=== PATIENT | male | born 1995 | race African-American/Black ===

== ENCOUNTER 2022-10-01 20:17 | Emergency (ER) | payer OTHER ==
[2022-10-01 20:29] VITALS: BP 119/66; PULSE 88; RESP 20; TEMP 98.1; BMI 21.4
[2022-10-01] MEDS ORDERED: LIDOCAINE HCL 2% (50ML VIAL) SQ ONE (21:32)
[2022-10-01] MEDS ORDERED: DIPHTH,PERTUSS(ACELL),TET 0.5 ML DISP.SYRIN IM ONE ×2 (21:33→21:53)
== END 2022-10-01 23:00 | disposition home or self-care (01) ==
LOC: JERFT 20:17
PROC: 0HQ1XZZ Repair Face Skin, External Approach (ICD-10-PCS; principal; 2022-10-01)
PROC: 3E0234Z Introduction of Serum, Toxoid and Vaccine into Muscle, Percutaneous Approach (ICD-10-PCS; 2022-10-01)
DX: S01.81XA Laceration without foreign body of other part of head, initial encounter (principal); W50.0XXA Accidental hit or strike by another person, initial encounter; Y93.67 Activity, basketball
CPT/HCPCS: 12011-25; 90471; 90715; 99282-25